=== PATIENT | male | born 1960 | race Caucasian/White ===

== ENCOUNTER 2018-05-16 06:19 | Day surgery (SDC) | payer BC ==
[~2018-05-16] VITALS: Ht 177.8 cm; Wt 84.0 kg
[2018-05-16] MEDS ORDERED: NONE PER PT (07:09)
[2018-05-16] MEDS ORDERED: LACTATED RINGERS 1,000 ML IV SCH (07:09)
[2018-05-16 07:31] VITALS: BP 130/82
[2018-05-16] MEDS ORDERED: PROPOFOL 10 MG/ML, 20ML ONE (08:52)
[2018-05-16] MEDS ORDERED: DEXAMETHASONE 4 MG/ML, 1ML ONE (08:52)
[2018-05-16] MEDS ORDERED: ONDANSETRON ODT 8 MG PO PRN (09:30)
[2018-05-16] MEDS ORDERED: FENTANYL PF 100 MCG/2ML IV PRN (09:30)
[2018-05-16] MEDS ORDERED: ONDANSETRON 2MG/ML, 2ML IV PRN (09:30)
[2018-05-16] MEDS ORDERED: ACETAMINOPHEN 325 MG TABLET PO PRN (09:30)
[2018-05-16] MEDS ORDERED: OXYcodone 5 MG/5 ML ORAL.SOL UDC PO PRN (09:30)
== END 2018-05-16 11:10 ==
LOC: OUT 06:19
PROVIDERS: ATTEND Internal Medicine Geriatric Medicine
DX: K22.2 Esophageal obstruction (principal); K22.10 Ulcer of esophagus without bleeding; K44.9 Diaphragmatic hernia without obstruction or gangrene; Z98.52 Vasectomy status; Z87.891 Personal history of nicotine dependence
CPT/HCPCS: 43237; J1100; J2704; J7120

== ENCOUNTER 2018-07-18 09:02 | Day surgery (SDC) | payer BC ==
[~2018-07-18] VITALS: Ht 180.3 cm; Wt 84.1 kg
[~2018-07-18 09:02] MED LIST: NONE PER PT; OMEP-110 PO
[2018-07-18] MEDS ORDERED: LACTATED RINGERS 1,000 ML IV SCH (09:42)
[2018-07-18 09:43] VITALS: BP 127/89
[2018-07-18] MEDS ORDERED: LIDOCAINE-MPF 1%, 2ML INFIL ONE (10:00)
[2018-07-18] MEDS ORDERED: FENTANYL PF 100 MCG/2ML ONE (10:50)
[2018-07-18] MEDS ORDERED: MIDAZOLAM 1 MG/ML, 2ML ONE (10:51)
[2018-07-18] MEDS ORDERED: NEOSTIGMINE 1 MG/ML, 10ML ONE (10:55)
[2018-07-18] MEDS ORDERED: DEXAMETHASONE 4 MG/ML, 1ML ONE (10:55)
[2018-07-18] MEDS ORDERED: SUCCINYLCHOLINE 20 MG/ML, 10ML ONE (10:55)
[2018-07-18] MEDS ORDERED: GLYCOPYRROLATE 0.2MG/1ML, 5ML ONE (10:55)
[2018-07-18] MEDS ORDERED: PROPOFOL 10 MG/ML, 20ML ONE (10:55)
[2018-07-18] MEDS ORDERED: LIDOCAINE 2% 100MG/5ML SYRINGE ONE (10:55)
[2018-07-18] MEDS ORDERED: ROCURONIUM 10MG/ML,5ML ONE (10:55)
[2018-07-18] MEDS ORDERED: ONDANSETRON 2MG/ML, 2ML ONE (10:55)
== END 2018-07-18 13:45 | disposition home or self-care (01) ==
LOC: OUT 09:02
PROVIDERS: ATTEND Internal Medicine Geriatric Medicine
DX: K86.2 Cyst of pancreas (principal); K22.8 Other specified diseases of esophagus; K21.9 Gastro-esophageal reflux disease without esophagitis
CPT/HCPCS: 43237; 43239; 88305; J0330; J1100; J2250; J2405; J2704; J2710; J3010; J3490; J7120